=== PATIENT | female | born 1955 | race Caucasian/White ===

== ENCOUNTER 2018-03-07 14:30 | Emergency (ER) | payer BC ==
[2018-03-07 18:07] LABS: ADD MAN DIFF? NO
[2018-03-07 18:10] LABS: BASOPHIL # 0.1 10^3/ul (0.0-0.1); BASOPHILS % 0.9 % (0.0-2.0); EOSINOPHILS % 0.4 % (0.0-7.0); HEMATOCRIT 39.7 % (37.0-47.0); HEMOGLOBIN 13.3 g/dl (12.0-16.0); LYMPHOCYTES # 2.3 10^3/ul (0.8-2.9); LYMPHOCYTES % 29.2 % (15.0-51.0); MEAN CORPUSCULAR HEMOGLOBIN 28.7 pg (29.0-33.0); MEAN CORPUSCULAR HGB CONC 33.5 g/dl (32.0-37.0); MEAN CORPUSCULAR VOLUME 85.7 fl (82.0-101.0); MEAN PLATELET VOLUME 9.6 fl (7.4-10.4); MONOCYTE # 0.6 10^3/ul (0.3-0.9); MONOCYTES % 7.5 % (0.0-11.0); NEUTROPHILS % 61.8 % (39.0-77.0); PLATELET COUNT 345 10^3/UL (140-415); RED BLOOD COUNT 4.63 10^6/ul (4.20-5.40); RED CELL DISTRIBUTION WIDTH 12.6 % (11.5-14.5)
[2018-03-07 18:11] LABS: URINE BLOOD (Dip) POC Trace-intact (NEGATIVE); URINE GLUCOSE (Dip) POC Negative (NEGATIVE); URINE KETONES (Dip) POC Negative (NEGATIVE); URINE LEUKOCYTE EST (Dip) POC Trace (NEGATIVE); URINE NITRITE (Dip) POC Negative (NEGATIVE); URINE TOTAL PROTEIN POC Negative (NEGATIVE)
[2018-03-07 18:38] LABS: ALANINE AMINOTRANSFERASE 31 IU/L (13-69); ALBUMIN 4.9 g/dl (3.3-4.9); ALBUMIN/GLOBULIN RATIO 1.22; ALKALINE PHOSPHATASE 92 IU/L (42-121); ANION GAP 15 (8-16); ASPARTATE AMINO TRANSFERASE 27 IU/L (15-46); BILIRUBIN,INDIRECT 0.5 mg/dl (0-1.1); BILIRUBIN,TOTAL 0.5 mg/dl (0.2-1.3); BLOOD UREA NITROGEN 10 mg/dl (7-20); CALCIUM 9.9 mg/dl (8.4-10.2); CARBON DIOXIDE 29 mmol/L (21-31); CHLORIDE 103 mmol/L (97-110); CREATININE 0.63 mg/dl (0.44-1.00); GLUCOSE 103 mg/dl (70-220); LIPASE 56 U/L (23-300); POTASSIUM 4.3 mmol/L (3.5-5.1); SODIUM 143 mmol/L (135-144); TOTAL PROTEIN 8.9 g/dl (6.1-8.1)
[2018-03-07] MEDS: ONDANSETRON 4 MG INJ IV (18:41)
[2018-03-07] MEDS: SOD CHLORIDE 0.9% 1,000 ML IV (18:42)
[2018-03-07] MEDS: morphine 4 MG/ML VIAL IV (18:42)
[2018-03-07] MEDS: SOD CHLORIDE 0.9% 100 ML (19:12)
[2018-03-07] MEDS: IOHEXOL 300MG/ML 150 ML BTL (19:12)
== END 2018-03-07 21:02 | disposition home or self-care (01) ==
LOC: E/R 14:30
DX: K52.9 Noninfective gastroenteritis and colitis, unspecified (principal); R40.2142 Coma scale, eyes open, spontaneous, at arrival to emergency department; R40.2252 Coma scale, best verbal response, oriented, at arrival to emergency department; R40.2362 Coma scale, best motor response, obeys commands, at arrival to emergency department
CPT/HCPCS: 36415; 74177; 80053; 81003; 83690; 85025; 96374; 96375; 99285-25

== ENCOUNTER 2018-03-23 07:59 | Inpatient (IN) | payer BC ==
[2018-03-23] MEDS: morphine 4 MG/ML VIAL IV (09:04)
[2018-03-23] MEDS: SOD CHLORIDE 0.9% 1,000 ML IV ×2 (09:04→14:32)
[2018-03-23] MEDS: ONDANSETRON 4 MG INJ IV (09:04)
[2018-03-23 09:17] LABS: ADD MAN DIFF? NO
[2018-03-23 09:19] LABS: WHITE BLOOD COUNT 7.6 10^3/ul (4.8-10.8)
[2018-03-23 09:19] LABS: BASOPHIL # 0.1 10^3/ul (0.0-0.1); BASOPHILS % 0.9 % (0.0-2.0); EOSINOPHILS % 0.5 % (0.0-7.0); HEMATOCRIT 40.4 % (37.0-47.0); HEMOGLOBIN 13.3 g/dl (12.0-16.0); LYMPHOCYTES # 2.5 10^3/ul (0.8-2.9); MEAN CORPUSCULAR HEMOGLOBIN 28.2 pg (29.0-33.0); MEAN CORPUSCULAR HGB CONC 32.9 g/dl (32.0-37.0); MEAN CORPUSCULAR VOLUME 85.8 fl (82.0-101.0); MEAN PLATELET VOLUME 9.6 fl (7.4-10.4); MONOCYTE # 0.6 10^3/ul (0.3-0.9); NEUTROPHIL # 4.3 10^3/ul (1.6-7.5); NEUTROPHILS % 57.3 % (39.0-77.0); PLATELET COUNT 384 10^3/UL (140-415); RED BLOOD COUNT 4.71 10^6/ul (4.20-5.40); RED CELL DISTRIBUTION WIDTH 12.4 % (11.5-14.5)
[2018-03-23 09:39] LABS: ALANINE AMINOTRANSFERASE 25 IU/L (13-69); ALBUMIN 4.5 g/dl (3.3-4.9); ALBUMIN/GLOBULIN RATIO 1.15; ALKALINE PHOSPHATASE 84 IU/L (42-121); ANION GAP 17 (8-16); ASPARTATE AMINO TRANSFERASE 23 IU/L (15-46); BILIRUBIN,INDIRECT 0.6 mg/dl (0-1.1); BILIRUBIN,TOTAL 0.6 mg/dl (0.2-1.3); BLOOD UREA NITROGEN 10 mg/dl (7-20); CALCIUM 9.2 mg/dl (8.4-10.2); CARBON DIOXIDE 28 mmol/L (21-31); CHLORIDE 105 mmol/L (97-110); CREATININE 0.63 mg/dl (0.44-1.00); GLUCOSE 93 mg/dl (70-220); LIPASE 59 U/L (23-300); POTASSIUM 3.6 mmol/L (3.5-5.1); SODIUM 146 mmol/L (135-144); TOTAL PROTEIN 8.4 g/dl (6.1-8.1)
[2018-03-23 09:41] LABS: ADD UMIC YES; UR ASCORBIC ACID NEGATIVE (NEGATIVE); UR BACTERIA FEW /HPF (NONE SEEN); UR BILIRUBIN (Dip) NEGATIVE (NEGATIVE); UR BLOOD (Dip) NEGATIVE (NEGATIVE); UR CLARITY SLIGHTLY CLOUDY (CLEAR); UR COLOR YELLOW (YELLOW); UR GLUCOSE (Dip) NEGATIVE (NEGATIVE); UR KETONES (Dip) NEGATIVE (NEGATIVE); UR LEUKOCYTE ESTERASE (Dip) TRACE Leu/ul (NEGATIVE); UR NITRITE (Dip) NEGATIVE (NEGATIVE); UR RBC 3 /HPF (0-5); UR SPECIFIC GRAVITY (Dip) 1.013 (1.003-1.030); UR TOTAL PROTEIN (Dip) NEGATIVE (NEGATIVE); UR UROBILINOGEN (Dip) NEGATIVE (NEGATIVE); UR WBC 3 /HPF (0-5)
[2018-03-23 09:44] LABS: INR 0.92; PROTIME 12.4 Sec (11.9-14.9)
[2018-03-23 09:49] LABS: TROPONIN-I < 0.012 ng/ml (0.000-0.120)
[2018-03-23] MEDS: IOHEXOL 300MG/ML 150 ML BTL (10:21)
[2018-03-23] MEDS: SOD CHLORIDE 0.9% 100 ML (10:22)
[2018-03-23] MEDS: KETOROLAC 15 MG INJ IV (12:31)
[2018-03-23] MEDS ORDERED: ACETAMINOPHEN 325 MG TAB PO (13:30)
[2018-03-23] MEDS ORDERED: ONDANSETRON 4 MG TAB PO (13:30)
[2018-03-23] MEDS ORDERED: ONDANSETRON 4 MG INJ IV (13:30)
[2018-03-23] MEDS ORDERED: NACL 0.9% 3 ML SYG IV (13:30)
[2018-03-23] MEDS ORDERED: HYDROCODONE/APAP (5/325) TAB PO (13:30)
[2018-03-23] MEDS ORDERED: ALPRAZOLAM 0.5 MG TAB PO (14:30)
[2018-03-23] MEDS ORDERED: traMADol 50 MG TAB PO (14:30)
[2018-03-23] MEDS: BISACODYL (EC) 5 MG TAB PO (16:47)
[2018-03-23] MEDS: MAGNESIUM CITRATE 300 ML BTL PO (17:47)
[2018-03-23] MEDS: POLYETHYLENE GLYCOL 3350 119 GM POWDER PO (17:48)
[2018-03-23] MEDS: morphine 2 MG INJ IV (19:54)
[2018-03-23] MEDS: PANTOPRAZOLE (EC) 40 MG TAB PO (20:26)
[2018-03-24] MEDS: SOD CHLORIDE 0.9% 1,000 ML IV ×3 (01:11→11:36)
[2018-03-24] MEDS: PANTOPRAZOLE (EC) 40 MG TAB PO (05:39)
[2018-03-24] MEDS: POLYETHYLENE GLYCOL 3350 119 GM POWDER PO (05:40)
[2018-03-24 05:59] LABS: ADD MAN DIFF? NO
[2018-03-24 06:02] LABS: WHITE BLOOD COUNT 4.5 10^3/ul (4.8-10.8)
[2018-03-24 06:02] LABS: BASOPHILS % 0.7 % (0.0-2.0); EOSINOPHILS % 0.7 % (0.0-7.0); HEMATOCRIT 34.8 % (37.0-47.0); HEMOGLOBIN 11.5 g/dl (12.0-16.0); LYMPHOCYTES # 1.6 10^3/ul (0.8-2.9); MEAN CORPUSCULAR VOLUME 87.7 fl (82.0-101.0); MEAN PLATELET VOLUME 9.6 fl (7.4-10.4); MONOCYTE # 0.5 10^3/ul (0.3-0.9); MONOCYTES % 10.4 % (0.0-11.0); NEUTROPHIL # 2.4 10^3/ul (1.6-7.5); NEUTROPHILS % 53.2 % (39.0-77.0); PLATELET COUNT 305 10^3/UL (140-415); RED BLOOD COUNT 3.97 10^6/ul (4.20-5.40); RED CELL DISTRIBUTION WIDTH 12.5 % (11.5-14.5)
[2018-03-24 06:41] LABS: BLOOD UREA NITROGEN 10 mg/dl (7-20); CALCIUM 8.6 mg/dl (8.4-10.2); CARBON DIOXIDE 28 mmol/L (21-31); CHLORIDE 113 mmol/L (97-110); CREATININE 0.63 mg/dl (0.44-1.00); GLUCOSE 92 mg/dl (70-220); MAGNESIUM 2.3 mg/dl (1.7-2.5); PHOSPHORUS 3.6 mg/dl (2.5-4.9); SODIUM 148 mmol/L (135-144)
[2018-03-24 06:43] LABS: ANION GAP 11 (8-16)
[2018-03-24] MEDS: BISACODYL (EC) 5 MG TAB PO (08:20)
[2018-03-24] MEDS: GABAPENTIN 100 MG CAP PO (08:20)
[2018-03-24] MEDS: ENOXAPARIN 40 MG/0.4 ML SYG SC (09:00)
[2018-03-24] MEDS ORDERED: DIPHENHYDRAMINE 50 MG INJ IV (18:00)
[2018-03-24] MEDS ORDERED: ONDANSETRON 4 MG INJ IV (18:00)
[2018-03-24] MEDS ORDERED: FENTAnyl 50 MCG/ML VIAL IV ×3 (18:00)
[2018-03-24] MEDS ORDERED: hydrALAzine 20 MG INJ IV (18:00)
[2018-03-24] MEDS ORDERED: METOCLOPRAMIDE 10 MG INJ IV (18:00)
[2018-03-24] MEDS ORDERED: EPHEDrine SULFATE 50 MG/5 ML SYG IV (18:00)
[2018-03-24] MEDS ORDERED: OXYCODONE/ACETAMINOPHEN (5/325) TAB PO ×2 (18:00)
[2018-03-24] MEDS ORDERED: LABETALOL HCL 20MG INJ IV (18:00)
[2018-03-24] MEDS ORDERED: MEPERIDINE 25 MG INJ IV (18:00)
[2018-03-24] MEDS ORDERED: MIDAZOLAM 1 MG/ML 2 ML INJ IV (18:00)
[2018-03-24] MEDS: PROPOFOL 20 ML (18:35)
[2018-03-25] MEDS: SOD CHLORIDE 0.9% 1,000 ML IV (00:07)
[2018-03-25] MEDS: PANTOPRAZOLE (EC) 40 MG TAB PO (06:30)
[2018-03-25] MEDS: GABAPENTIN 100 MG CAP PO (08:54)
[2018-03-25] MEDS: ENOXAPARIN 40 MG/0.4 ML SYG SC (08:55)
[2018-03-26] MEDS: PANTOPRAZOLE (EC) 40 MG TAB PO (05:43)
[2018-03-26] MEDS: GABAPENTIN 100 MG CAP PO (07:54)
[2018-03-26] MEDS: ENOXAPARIN 40 MG/0.4 ML SYG SC (07:55)
[2018-03-26] MEDS: POLYETHYLENE GLYCOL 17 GM PACKET PO (09:00)
[2018-03-27] MEDS: PANTOPRAZOLE (EC) 40 MG TAB PO (06:06)
[2018-03-27] MEDS: POLYETHYLENE GLYCOL 17 GM PACKET PO (08:16)
[2018-03-27] MEDS: ENOXAPARIN 40 MG/0.4 ML SYG SC (08:17)
[2018-03-27] MEDS: GABAPENTIN 100 MG CAP PO (08:17)
== END 2018-03-27 17:15 | disposition home or self-care (01) | DRG 392 ==
LOC: E/R 07:59 → PP2 11:56
PROC: 0DBF8ZX Excision of Right Large Intestine, Via Natural or Artificial Opening Endoscopic, Diagnostic (ICD-10-PCS; principal; 2018-03-24 17:00)
PROC: 0DBG8ZX Excision of Left Large Intestine, Via Natural or Artificial Opening Endoscopic, Diagnostic (ICD-10-PCS; 2018-03-24 17:00)
PROC: 0DBB8ZX Excision of Ileum, Via Natural or Artificial Opening Endoscopic, Diagnostic (ICD-10-PCS; 2018-03-24 17:00)
DX: K52.9 Noninfective gastroenteritis and colitis, unspecified (principal); Z90.49 Acquired absence of other specified parts of digestive tract
CPT/HCPCS: 36415; 74177; 80048; 80053; 81001; 83690; 83735; 84100; 84484; 85025; 85610; 85730; 87075; 87177; 88305; 93005; 96374; 96375; 99285-25

== ENCOUNTER 2018-07-03 05:43 | Day surgery (SDC) | payer BC ==
[2018-07-03] MEDS ORDERED: MIDAZOLAM 1 MG/ML 2 ML INJ ×2 (07:49)
[2018-07-03] MEDS ORDERED: FENTAnyl 50 MCG/ML VIAL (07:49)
== END 2018-07-03 11:56 | disposition home or self-care (01) ==
LOC: GIL 05:43
DX: K29.70 Gastritis, unspecified, without bleeding (principal)
CPT/HCPCS: 43239; 88305; 88312

== ENCOUNTER 2018-08-28 11:56 | Emergency (ER) | payer BC ==
[2018-08-28 15:37] LABS: ADD MAN DIFF? NO
[2018-08-28 15:40] LABS: WHITE BLOOD COUNT 6.1 10^3/ul (4.8-10.8)
[2018-08-28 15:40] LABS: BASOPHILS % 0.7 % (0.0-2.0); EOSINOPHILS % 0.2 % (0.0-7.0); HEMATOCRIT 39.6 % (37.0-47.0); LYMPHOCYTES # 2.3 10^3/ul (0.8-2.9); LYMPHOCYTES % 37.4 % (15.0-51.0); MEAN CORPUSCULAR HEMOGLOBIN 28.2 pg (29.0-33.0); MEAN CORPUSCULAR HGB CONC 32.8 g/dl (32.0-37.0); MEAN CORPUSCULAR VOLUME 85.9 fl (82.0-101.0); MONOCYTE # 0.5 10^3/ul (0.3-0.9); MONOCYTES % 7.5 % (0.0-11.0); NEUTROPHIL # 3.3 10^3/ul (1.6-7.5); PLATELET COUNT 352 10^3/UL (140-415); RED BLOOD COUNT 4.61 10^6/ul (4.20-5.40); RED CELL DISTRIBUTION WIDTH 12.7 % (11.5-14.5); URINE BLOOD (Dip) POC Negative (NEGATIVE); URINE GLUCOSE (Dip) POC Negative (NEGATIVE); URINE KETONES (Dip) POC Negative (NEGATIVE); URINE LEUKOCYTE EST (Dip) POC Negative (NEGATIVE); URINE NITRITE (Dip) POC Negative (NEGATIVE); URINE TOTAL PROTEIN POC Negative (NEGATIVE)
[2018-08-28 15:40] LABS: URINE PH (Dip) POC 6.5 (5.0-8.5)
[2018-08-28] MEDS: KETOROLAC 30 MG INJ IV (15:50)
[2018-08-28 16:00] LABS: ALANINE AMINOTRANSFERASE 33 IU/L (13-69); ALBUMIN 4.7 g/dl (3.3-4.9); ALKALINE PHOSPHATASE 99 IU/L (42-121); ANION GAP 12 (5-13); ASPARTATE AMINO TRANSFERASE 29 IU/L (15-46); BILIRUBIN,INDIRECT 0.3 mg/dl (0-1.1); BILIRUBIN,TOTAL 0.3 mg/dl (0.2-1.3); BLOOD UREA NITROGEN 10 mg/dl (7-20); CALCIUM 9.7 mg/dl (8.4-10.2); CARBON DIOXIDE 24 mmol/L (21-31); CHLORIDE 106 mmol/L (97-110); CREATININE 0.69 mg/dl (0.44-1.00); Estimated GFR > 60 mL/min (>60); GLUCOSE 100 mg/dl (70-220); LIPASE 71 U/L (23-300); POTASSIUM 4.1 mmol/L (3.5-5.1); SODIUM 142 mmol/L (135-144); TOTAL PROTEIN 8.3 g/dl (6.1-8.1)
== END 2018-08-28 16:56 | disposition home or self-care (01) ==
LOC: E/R 11:56
DX: N39.0 Urinary tract infection, site not specified (principal)
CPT/HCPCS: 36415; 80053; 81003; 83690; 85025; 96374; 99284-25

== ENCOUNTER 2019-03-14 07:39 | Inpatient (IN) | payer BC ==
[2019-03-14] MEDS ORDERED: NACL 0.9% 3 ML SYG IV (09:00)
[2019-03-14] MEDS: morphine 2 MG INJ IV (13:05)
[2019-03-14 13:18] LABS: ADD MAN DIFF? NO
[2019-03-14 13:21] LABS: WHITE BLOOD COUNT 7.2 10^3/ul (4.8-10.8)
[2019-03-14 13:21] LABS: BASOPHIL # 0.1 10^3/ul (0.0-0.1); BASOPHILS % 0.8 % (0.0-2.0); EOSINOPHILS % 0.3 % (0.0-7.0); HEMATOCRIT 42.7 % (37.0-47.0); HEMOGLOBIN 13.9 g/dl (12.0-16.0); LYMPHOCYTES # 1.9 10^3/ul (0.8-2.9); LYMPHOCYTES % 25.6 % (15.0-51.0); MEAN CORPUSCULAR HEMOGLOBIN 27.9 pg (29.0-33.0); MEAN CORPUSCULAR HGB CONC 32.6 g/dl (32.0-37.0); MEAN CORPUSCULAR VOLUME 85.6 fl (82.0-101.0); MEAN PLATELET VOLUME 9.3 fl (7.4-10.4); MONOCYTE # 0.7 10^3/ul (0.3-0.9); MONOCYTES % 9.6 % (0.0-11.0); NEUTROPHIL # 4.6 10^3/ul (1.6-7.5); NEUTROPHILS % 63.4 % (39.0-77.0); PLATELET COUNT 370 10^3/UL (140-415); RED BLOOD COUNT 4.99 10^6/ul (4.20-5.40); RED CELL DISTRIBUTION WIDTH 12.7 % (11.5-14.5)
[2019-03-14] MEDS: SOD CHLORIDE 0.9% 1,000 ML IV (13:28)
[2019-03-14] MEDS: ONDANSETRON 4 MG INJ IV (13:28)
[2019-03-14 13:41] LABS: ALANINE AMINOTRANSFERASE 41 IU/L (13-69); ALBUMIN 4.7 g/dl (3.3-4.9); ALBUMIN/GLOBULIN RATIO 1.23; ALKALINE PHOSPHATASE 115 IU/L (42-121); ANION GAP 9 (5-13); ASPARTATE AMINO TRANSFERASE 35 IU/L (15-46); BILIRUBIN,INDIRECT 0.6 mg/dl (0-1.1); BILIRUBIN,TOTAL 0.6 mg/dl (0.2-1.3); BLOOD UREA NITROGEN 14 mg/dl (7-20); CALCIUM 10.1 mg/dl (8.4-10.2); CARBON DIOXIDE 29 mmol/L (21-31); CHLORIDE 104 mmol/L (97-110); CHOLESTEROL 241 mg/dl (100-200); CREATININE 0.65 mg/dl (0.44-1.00); Estimated GFR > 60 mL/min (>60); GLUCOSE 125 mg/dl (70-220); HDL CHOLESTEROL 48 mg/dl (35-98); LDL CHOLESTEROL,CALCULATED 153 mg/dl; POTASSIUM 4.4 mmol/L (3.5-5.1); SODIUM 142 mmol/L (135-144); TOTAL PROTEIN 8.5 g/dl (6.1-8.1); TRIGLYCERIDES 201 mg/dl (0-149)
[2019-03-14] MEDS ORDERED: NA PHOSPHATE/BIPHOS 133 ML ENEMA PR (16:03)
[2019-03-14] MEDS: NA PHOSPHATE/BIPHOS 133 ML ENEMA PR (16:43)
[2019-03-15] MEDS: SOD CHLORIDE 0.9% 1,000 ML IV (02:43)
[2019-03-15 06:08] LABS: ADD MAN DIFF? NO
[2019-03-15 06:09] LABS: BASOPHIL # 0.1 10^3/ul (0.0-0.1); EOSINOPHILS % 0.8 % (0.0-7.0); HEMATOCRIT 38.9 % (37.0-47.0); HEMOGLOBIN 12.8 g/dl (12.0-16.0); LYMPHOCYTES # 1.6 10^3/ul (0.8-2.9); LYMPHOCYTES % 32.5 % (15.0-51.0); MEAN CORPUSCULAR HEMOGLOBIN 28.3 pg (29.0-33.0); MEAN CORPUSCULAR HGB CONC 32.9 g/dl (32.0-37.0); MEAN CORPUSCULAR VOLUME 85.9 fl (82.0-101.0); MEAN PLATELET VOLUME 9.6 fl (7.4-10.4); MONOCYTE # 0.5 10^3/ul (0.3-0.9); MONOCYTES % 9.7 % (0.0-11.0); NEUTROPHIL # 2.8 10^3/ul (1.6-7.5); NEUTROPHILS % 55.8 % (39.0-77.0); PLATELET COUNT 334 10^3/UL (140-415); RED BLOOD COUNT 4.53 10^6/ul (4.20-5.40); RED CELL DISTRIBUTION WIDTH 12.8 % (11.5-14.5)
[2019-03-15 06:09] LABS: WHITE BLOOD COUNT 4.9 10^3/ul (4.8-10.8)
[2019-03-15 06:34] LABS: ANION GAP 7 (5-13); BLOOD UREA NITROGEN 17 mg/dl (7-20); CALCIUM 9.1 mg/dl (8.4-10.2); CARBON DIOXIDE 28 mmol/L (21-31); CHLORIDE 108 mmol/L (97-110); CREATININE 0.66 mg/dl (0.44-1.00); Estimated GFR > 60 mL/min (>60); GLUCOSE 111 mg/dl (70-220); MAGNESIUM 2.2 mg/dl (1.7-2.5); PHOSPHORUS 3.7 mg/dl (2.5-4.9); POTASSIUM 3.9 mmol/L (3.5-5.1); SODIUM 143 mmol/L (135-144)
[2019-03-16] MEDS: SOD CHLORIDE 0.9% 1,000 ML IV ×2 (02:54→05:30)
[2019-03-16 07:19] LABS: ANION GAP 8 (5-13); BLOOD UREA NITROGEN 17 mg/dl (7-20); CALCIUM 8.9 mg/dl (8.4-10.2); CARBON DIOXIDE 27 mmol/L (21-31); CHLORIDE 108 mmol/L (97-110); CREATININE 0.63 mg/dl (0.44-1.00); Estimated GFR > 60 mL/min (>60); GLUCOSE 95 mg/dl (70-220); POTASSIUM 3.8 mmol/L (3.5-5.1); SODIUM 143 mmol/L (135-144)
[2019-03-16] MEDS: POLYETHYLENE GLYCOL 17 GM PACKET PO (08:06)
[2019-03-16] MEDS: IOHEXOL 300MG/ML 150 ML BTL (08:06)
== END 2019-03-16 18:22 | disposition home or self-care (01) | DRG 395 ==
LOC: PP2 07:39
DX: K43.6 Other and unspecified ventral hernia with obstruction, without gangrene (principal); K43.9 Ventral hernia without obstruction or gangrene; K59.00 Constipation, unspecified; E66.9 Obesity, unspecified; Z68.29 Body mass index [BMI] 29.0-29.9, adult
CPT/HCPCS: 74250; 80048; 80053; 80061; 83036; 83735; 84100; 85025; 87081

== ENCOUNTER 2019-07-01 23:47 | Inpatient (IN) | payer BC ==
[2019-07-02 00:59] LABS: ADD MAN DIFF? NO
[2019-07-02 01:03] LABS: WHITE BLOOD COUNT 7.7 10^3/ul (4.8-10.8)
[2019-07-02 01:04] LABS: BASOPHILS % 0.4 % (0.0-2.0); EOSINOPHILS % 0.3 % (0.0-7.0); HEMATOCRIT 41.9 % (37.0-47.0); HEMOGLOBIN 13.8 g/dl (12.0-16.0); LYMPHOCYTES # 0.8 10^3/ul (0.8-2.9); LYMPHOCYTES % 10.9 % (15.0-51.0); MEAN CORPUSCULAR HEMOGLOBIN 28.5 pg (29.0-33.0); MEAN CORPUSCULAR HGB CONC 32.9 g/dl (32.0-37.0); MEAN CORPUSCULAR VOLUME 86.4 fl (82.0-101.0); MEAN PLATELET VOLUME 9.5 fl (7.4-10.4); MONOCYTE # 0.5 10^3/ul (0.3-0.9); MONOCYTES % 6.1 % (0.0-11.0); NEUTROPHIL # 6.3 10^3/ul (1.6-7.5); NEUTROPHILS % 81.9 % (39.0-77.0); PLATELET COUNT 344 10^3/UL (140-415); RED BLOOD COUNT 4.85 10^6/ul (4.20-5.40); RED CELL DISTRIBUTION WIDTH 12.9 % (11.5-14.5)
[2019-07-02] MEDS: ONDANSETRON 4 MG INJ IV ×4 (01:15→21:19)
[2019-07-02] MEDS: KETOROLAC 30 MG INJ IV (01:15)
[2019-07-02 01:21] LABS: ALANINE AMINOTRANSFERASE 39 IU/L (13-69); ALBUMIN 4.1 g/dl (3.3-4.9); ALBUMIN/GLOBULIN RATIO 1.17; ALKALINE PHOSPHATASE 111 IU/L (42-121); ANION GAP 10 (5-13); ASPARTATE AMINO TRANSFERASE 27 IU/L (15-46); BILIRUBIN,INDIRECT 0.3 mg/dl (0-1.1); BILIRUBIN,TOTAL 0.3 mg/dl (0.2-1.3); BLOOD UREA NITROGEN 12 mg/dl (7-20); CALCIUM 9.6 mg/dl (8.4-10.2); CARBON DIOXIDE 27 mmol/L (21-31); CHLORIDE 104 mmol/L (97-110); CREATININE 0.65 mg/dl (0.44-1.00); Estimated GFR > 60 mL/min (>60); GLUCOSE 165 mg/dl (70-220); LIPASE 34 U/L (23-300); POTASSIUM 3.9 mmol/L (3.5-5.1); SODIUM 141 mmol/L (135-144); TOTAL PROTEIN 7.6 g/dl (6.1-8.1)
[2019-07-02 01:22] LABS: ADD UMIC YES; UR AMORPHOUS CRYSTAL MODERATE /HPF (NONE SEEN); UR ASCORBIC ACID NEGATIVE (NEGATIVE); UR BACTERIA FEW /HPF (NONE SEEN); UR BILIRUBIN (Dip) NEGATIVE (NEGATIVE); UR BLOOD (Dip) NEGATIVE (NEGATIVE); UR CLARITY TURBID (CLEAR); UR COLOR YELLOW (YELLOW); UR GLUCOSE (Dip) NEGATIVE (NEGATIVE); UR KETONES (Dip) NEGATIVE (NEGATIVE); UR LEUKOCYTE ESTERASE (Dip) TRACE Leu/ul (NEGATIVE); UR MUCUS FEW /HPF (NONE SEEN); UR NITRITE (Dip) NEGATIVE (NEGATIVE); UR RBC 2 /HPF (0-5); UR SPECIFIC GRAVITY (Dip) 1.029 (1.003-1.030); UR SQUAMOUS EPITHELIAL CELL FEW /HPF (FEW); UR TOTAL PROTEIN (Dip) 1+ mg/dl (NEGATIVE); UR UROBILINOGEN (Dip) 2+ mg/dL (NEGATIVE); UR WBC 8 /HPF (0-5)
[2019-07-02 01:33] LABS: TROPONIN-I < 0.012 ng/ml (0.000-0.120)
[2019-07-02] MEDS ORDERED: ONDANSETRON 4 MG INJ IV (03:00)
[2019-07-02] MEDS ORDERED: ACETAMINOPHEN 325 MG TAB PO (03:00)
[2019-07-02] MEDS ORDERED: NACL 0.9% 3 ML SYG IV (04:30)
[2019-07-02] MEDS: morphine 2 MG INJ IV ×3 (04:46→13:32)
[2019-07-02] MEDS: SOD CHLORIDE 0.9% 1,000 ML IV ×2 (05:41→14:42)
[2019-07-02] MEDS: CEFTRIAXONE 1 GM/50 ML (PMX) 50 ML IVPB (14:42)
[2019-07-02] MEDS: HYDROmorphONE 1 MG/ML SYG IV (21:17)
[2019-07-03] MEDS: ONDANSETRON 4 MG INJ IV ×3 (05:01→22:17)
[2019-07-03] MEDS: SOD CHLORIDE 0.9% 1,000 ML IV ×3 (05:01→22:16)
[2019-07-03] MEDS: HYDROmorphONE 1 MG/ML SYG IV ×3 (05:02→22:17)
[2019-07-03 05:12] LABS: ADD MAN DIFF? NO
[2019-07-03 05:14] LABS: WHITE BLOOD COUNT 4.5 10^3/ul (4.8-10.8)
[2019-07-03 05:14] LABS: BASOPHILS % 0.4 % (0.0-2.0); EOSINOPHILS % 0.7 % (0.0-7.0); HEMATOCRIT 37.1 % (37.0-47.0); LYMPHOCYTES # 1.4 10^3/ul (0.8-2.9); LYMPHOCYTES % 31.5 % (15.0-51.0); MEAN CORPUSCULAR HEMOGLOBIN 28.2 pg (29.0-33.0); MEAN CORPUSCULAR HGB CONC 32.3 g/dl (32.0-37.0); MEAN CORPUSCULAR VOLUME 87.1 fl (82.0-101.0); MEAN PLATELET VOLUME 9.6 fl (7.4-10.4); MONOCYTE # 0.4 10^3/ul (0.3-0.9); MONOCYTES % 9.1 % (0.0-11.0); NEUTROPHIL # 2.6 10^3/ul (1.6-7.5); NEUTROPHILS % 58.1 % (39.0-77.0); PLATELET COUNT 280 10^3/UL (140-415); RED BLOOD COUNT 4.26 10^6/ul (4.20-5.40); RED CELL DISTRIBUTION WIDTH 13.1 % (11.5-14.5)
[2019-07-03 05:45] LABS: ALANINE AMINOTRANSFERASE 39 IU/L (13-69); ALBUMIN 3.3 g/dl (3.3-4.9); ALBUMIN/GLOBULIN RATIO 1.06; ALKALINE PHOSPHATASE 87 IU/L (42-121); ANION GAP 6 (5-13); ASPARTATE AMINO TRANSFERASE 26 IU/L (15-46); BILIRUBIN,INDIRECT 0.4 mg/dl (0-1.1); BILIRUBIN,TOTAL 0.4 mg/dl (0.2-1.3); BLOOD UREA NITROGEN 15 mg/dl (7-20); CALCIUM 8.8 mg/dl (8.4-10.2); CARBON DIOXIDE 26 mmol/L (21-31); CHLORIDE 109 mmol/L (97-110); CHOL/HDL RATIO 3.8 RATIO; CHOLESTEROL 116 mg/dl (100-200); CREATININE 0.58 mg/dl (0.44-1.00); Estimated GFR > 60 mL/min (>60); GLUCOSE 97 mg/dl (70-220); HDL CHOLESTEROL 30 mg/dl (35-98); LDL CHOLESTEROL,CALCULATED 62 mg/dl; MAGNESIUM 2.1 mg/dl (1.7-2.5); POTASSIUM 3.7 mmol/L (3.5-5.1); SODIUM 141 mmol/L (135-144); TOTAL PROTEIN 6.4 g/dl (6.1-8.1); TRIGLYCERIDES 118 mg/dl (0-149)
[2019-07-03] MEDS: IOHEXOL 300MG/ML 150 ML BTL ×2 (14:06)
[2019-07-03] MEDS: CEFTRIAXONE 1 GM/50 ML (PMX) 50 ML IVPB (16:11)
[2019-07-04] MEDS: SOD CHLORIDE 0.9% 1,000 ML IV ×2 (03:01→14:25)
[2019-07-04 05:50] LABS: ANION GAP 8 (5-13); BLOOD UREA NITROGEN 9 mg/dl (7-20); CARBON DIOXIDE 27 mmol/L (21-31); CHLORIDE 106 mmol/L (97-110); CREATININE 0.51 mg/dl (0.44-1.00); Estimated GFR > 60 mL/min (>60); GLUCOSE 77 mg/dl (70-220); POTASSIUM 3.9 mmol/L (3.5-5.1); SODIUM 141 mmol/L (135-144)
[2019-07-04] MEDS: ONDANSETRON 4 MG INJ IV (06:25)
[2019-07-04] MEDS: HYDROmorphONE 1 MG/ML SYG IV (06:26)
[2019-07-04] MEDS: CEFTRIAXONE 1 GM/50 ML (PMX) 50 ML IVPB (14:30)
[2019-07-04] MEDS: ACETAMINOPHEN 325 MG TAB PO (21:29)
[2019-07-04] MEDS ORDERED: ALPRAZOLAM 0.5 MG TAB PO ×2 (22:00→22:30)
[2019-07-04] MEDS: GABAPENTIN 100 MG CAP PO (22:26)
[2019-07-05 06:08] LABS: ANION GAP 7 (5-13); BLOOD UREA NITROGEN 8 mg/dl (7-20); CALCIUM 9.6 mg/dl (8.4-10.2); CARBON DIOXIDE 26 mmol/L (21-31); CHLORIDE 107 mmol/L (97-110); CREATININE 0.56 mg/dl (0.44-1.00); Estimated GFR > 60 mL/min (>60); GLUCOSE 99 mg/dl (70-220); MAGNESIUM 1.9 mg/dl (1.7-2.5); POTASSIUM 4.2 mmol/L (3.5-5.1); SODIUM 140 mmol/L (135-144)
[2019-07-05] MEDS: GABAPENTIN 100 MG CAP PO (08:25)
[2019-07-05] MEDS ORDERED: GABAPENTIN 100 MG CAP PO (09:00)
[2019-07-05] MEDS: CEFTRIAXONE 1 GM/50 ML (PMX) 50 ML IVPB (14:45)
[2019-07-05] MEDS: ACETAMINOPHEN 325 MG TAB PO (16:03)
== END 2019-07-05 17:05 | disposition home or self-care (01) | DRG 389 ==
LOC: E/R 07-02 23:47 → MS1 07-02 02:43
DX: K56.51 Intestinal adhesions [bands], with partial obstruction (principal); N39.0 Urinary tract infection, site not specified; E66.9 Obesity, unspecified; Z68.32 Body mass index [BMI] 32.0-32.9, adult
CPT/HCPCS: 36415; 71045; 74018; 74176; 74250; 80048; 80053; 80061; 81001; 83036; 83690; 83735; 84443; 84484; 85025; 93005; 96374; 96375; 99285-25

== ENCOUNTER 2019-07-13 12:11 | Day surgery (SDC) | payer BC ==
[2019-07-13] MEDS ORDERED: PROPOFOL 20 ML ×2 (13:25)
[2019-07-13] MEDS ORDERED: LIDOCAINE 2% (SDV) 5 ML INJ (13:25)
== END 2019-07-13 17:00 | disposition home or self-care (01) ==
LOC: SDS 12:11 → GIL 12:11
DX: K46.9 Unspecified abdominal hernia without obstruction or gangrene (principal); K57.30 Diverticulosis of large intestine without perforation or abscess without bleeding
CPT/HCPCS: 45378

== ENCOUNTER 2019-07-19 22:10 | Emergency (ER) | payer BC ==
[2019-07-20] MEDS: MINERAL OIL 133 ML ENEMA PR (00:30)
== END 2019-07-20 03:01 | disposition home or self-care (01) ==
LOC: E/R 22:10
DX: K59.00 Constipation, unspecified (principal); R40.2142 Coma scale, eyes open, spontaneous, at arrival to emergency department; R40.2252 Coma scale, best verbal response, oriented, at arrival to emergency department; R40.2362 Coma scale, best motor response, obeys commands, at arrival to emergency department; R11.2 Nausea with vomiting, unspecified; D64.9 Anemia, unspecified
CPT/HCPCS: 36415; 74176; 80053; 81003; 83690; 85025; 99284-25